=== PATIENT | female | born 2000 | race Caucasian/White ===

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

== ENCOUNTER → 2020-11-03 14:00 | Outpatient (BNVA) | payer BC, MEDICAID, SELFPAY | PROVIDERS: Family Provider Family Medicine; PCP Family Medicine; Visit Provider Obstetrics & Gynecology | DX: Z30.017 Encounter for initial prescription of implantable subdermal contraceptive (principal) | CPT/HCPCS: 81025 ==

== ENCOUNTER 2021-08-02 17:06 | Emergency (ER) | payer OTHER, SELFPAY ==
[2021-08-02 17:46] VITALS: BP 134/81; PULSE 99; RESP 14; TEMP 36.7; O2SAT 99
[2021-08-02 20:03] VITALS: BP 126/76; PULSE 84; RESP 14; O2SAT 99
--- NOTE | 2021-08-02 20:03 | XRR_ITS ---
PROCEDURE INFORMATION: Exam: XR Abdomen Exam date and time: 08/02/2021 8:11 PM Age: 21 years old Clinical indication: Abdominal pain; Generalized; Additional info: Episodic abdominal pain TECHNIQUE: Imaging protocol: XR of the abdomen. Views: Frontal supine view of the abdomen. 1 View. COMPARISON: No relevant prior studies available. FINDINGS: Gastrointestinal tract: Moderate amount of stool throughout the colon. No dilated loops of bowel identified. No evidence of free air. Bones/joints: Unremarkable. XR/XR KUB [id number] IMPRESSION: No acute findings.
--- NOTE | 2021-08-02 20:04 | ED_ITS ---
HPI - Abdominal Pain General: Chief Complaint: Abdominal Pain Stated Complaint: sharp abdominal pain when eating Time Seen by Provider: 08/02/21 19:52 History of Present Illness: Patient is a 21-year-old female comes to the ED with episodic abdominal pain. Symptoms have been going on now for several weeks. Today the abdominal pain was more intense than in previous episodes. She says the abdominal pain is episodic and comes usually once a day and lasts for anywhere from 15 to 30 minutes after she eats. She describes a sharp cramping pain throughout her abdomen. Here in the ED she is not having any abdominal pain. She says the episode of abdominal pain she had earlier has completely resolved and she feels normal. She endorses daily bowel movements. Denies any fever, chills, nausea/vomiting, dysuria, hematuria, diarrhea or constipation. Associated Symptoms: Reports GI cramping; Denies chills, constipation, diarrhea, dysuria, fever(s), hematochezia, hematuria, nausea and vomiting Related Data: Date of Last Menstrual Period: 08/02/21 Review of Systems Const: Denies: fever(s), chills or fatigue Eyes: Denies: change in vision or eye discomfort ENMT: Denies: throat pain, odynophagia, nasal discharge or nasal congestion Card: Denies: chest pain, palpitations, edema, swelling of feet/ankles, dyspnea on exertion or orthopnea Resp: Denies: dyspnea, productive cough or non-productive cough GI: Reports: abdominal pain and GI cramping; Denies: nausea, vomiting, diarrhea, constipation or hematochezia : Denies: flank pain, dysuria or hematuria Musc: Denies: neck pain, back pain or extremity swelling Skin/Breast: Denies: rash or new lesions Neuro: Denies: headache(s), numbness in extremities or weakness in extremities PFSH ED PFSH: Surgical History No pertinent past surgical history Family History Grandmother Stroke Maternal Denies family history of Diabetes CAD (coronary artery disease) Clotting disorder Hyperlipidemia Chronic kidney disease (CKD) Bleeding disorder Cancer Hypertension Female Reproductive History: Date of last menstrual period: 08/02/21 Physical Exam Const: COMMON NORMALS: no acute distress, patient oriented x3, healthy appearing and alert GENERAL APPEARANCE: cooperative and comfortable HENMT: COMMON NORMALS: normocephalic HEAD & SCALP: normocephalic MOUTH: Normal oral and palatal mucosa present THROAT: posterior oropharynx normal and uvula midline Eye: COMMON NORMALS: Equal, round and reactive pupils present and conjunctivae normal CONJUNCTIVA: Yes conjunctivae normal PUPIL: Yes Equal, round and reactive pupils present Neck/C-Spine: COMMON NORMALS: supple GENERAL: Yes normal visual inspection Resp: COMMON NORMALS: normal respiratory effort, No retractions, No use of accessory muscles and clear to auscultation bilaterally AUSCULTATION: clear to auscultation bilaterally Cardio: COMMON NORMALS: regular rate, regular rhythm, S1 normal heart sound present, S2 normal heart sound present, No gallops present (Cardio), No clicks present (Cardio), No murmurs present (Cardio) and Peripheral pulses 2+ throughout RATE: regular rate RHYTHM: regular rhythm HEART SOUNDS: S1 normal heart sound present and S2 normal heart sound present PERIPHERAL PULSES: Peripheral pulses 2+ throughout GI: COMMON NORMALS: Normal to inspection, nondistended, normoactive bowel sounds present, Soft to palpation, non-tender and no masses PALPATION: Yes Soft to palpation OTHER: Patient has no abdominal tenderness to palpation throughout all 4 quadrants. : COMMON NORMALS: Yes no CVA tenderness BLADDER/KIDNEY EXAM: Yes no CVA tenderness Back/Pelvis: COMMON NORMALS: no CVA tenderness Extremity: COMMON NORMALS: normal to inspection Neuro: COMMON NORMALS: patient oriented x3 SENSORIUM/ORIENTATION: Yes alert GAIT: Yes Normal gait present Skin: GENERAL SKIN EXAM: dry skin Course Vital Signs: Vital signs: Vital Signs Temperature 98.0 F 08/02/21 17:46 Pulse Rate 84 08/02/21 21:11 Respiratory Rate 16 08/02/21 21:11 Blood Pressure 116/75 08/02/21 21:11 Pulse Oximetry 98 08/02/21 21:11 MDM - Abdominal Pain Medical Decision Making Patient is a 21-year-old female comes to the ED with episodes of abdominal pain. She describes them as sharp cramping pain she has been having these for several weeks now. Episodes usually start after she eats and they last anywhere from 15 to 30 minutes. In the ED she has no current abdominal pain and states she feels normal. Denies any other symptoms such as fever, nausea/vomiting or diarrhea or constipation. Vitals are stable. Exam is benign patient has no abdominal tenderness. Labs are overall unremarkable. KUB showed a moderate amount of stool in the colon but no other acute findings. Given patient's clinical presentation normal labs and KUB findings she likely is having abdominal pain due to constipation. Patient was stable for discharge home I told her to follow-up with her PCP in the next week for reevaluation. She was sent home with a prescription for MiraLAX. Return ED precautions given. Patient understood and agreed with plan. Lab Data I reviewed the patient's lab results. : 08/02/21 19:43 08/02/21 19:43 Labs/Radiology: Radiology Impressions KUB X-Ray 08/02/21 20:03 IMPRESSION: No acute findings. Laboratory Results WBC 8.1 10^3/uL (4.0-10.0) 08/02/21 19:43 RBC 5.10 10^6/uL (4.1-5.3) 08/02/21 19:43 Hgb 14.2 g/dL (11.5-15.3) 08/02/21 19:43 Hct 43.0 % (37.0-47.0) 08/02/21 19:43 MCV 84.3 fl (81-99) 08/02/21 19:43 MCH 27.8 pg (28.0-34.0) L 08/02/21 19:43 MCHC 33.0 g/dL (30.0-36.0) 08/02/21 19:43 RDW 11.8 % (12.1-15.1) L 08/02/21 19:43 Plt Count 366 10^3/cmm (130-400) 08/02/21 19:43 MPV 9.3 fL (7.4-10.4) 08/02/21 19:43 Neut % (Auto) 60.9 % 08/02/21 19:43 Lymph % (Auto) 31.2 % 08/02/21 19:43 [place] % (Auto) 6.6 % 08/02/21 19:43 Eos % (Auto) 0.7 % 08/02/21 19:43 Baso % (Auto) 0.4 % 08/02/21 19:43 Neut # (Auto) 4.92 10^3/uL (1.8-7.7) 08/02/21 19:43 Lymph # (Auto) 2.5 10^3/uL (0.8-4.8) 08/02/21 19:43 [place] # (Auto) 0.5 10^3/uL (0.2-0.9) 08/02/21 19:43 Eos # (Auto) 0.1 10^3/uL (0.0-0.8) 08/02/21 19:43 Baso # (Auto) 0.0 10^3/uL (0.0-0.1) 08/02/21 19:43 Nucleated RBC % (auto) 0 % 08/02/21 19:43 Nucleated RBCs # 0.0 /100WBC 08/02/21 19:43 Sodium 138 mmol/L (136-145) 08/02/21 19:43 Potassium 3.8 mmol/L (3.5-5.1) 08/02/21 19:43 Chloride 102 mmol/L (98-107) 08/02/21 19:43 Carbon Dioxide 23 mmol/L (22-29) 08/02/21 19:43 Anion Gap 16.8 (5-19) 08/02/21 19:43 BUN 9 mg/dL (6-20) 08/02/21 19:43 Creatinine 0.6 mg/dL (0.5-0.9) 08/02/21 19:43 GFR Calculation 126.2 mL/min (90-130) 08/02/21 19:43 Glucose 84 mg/dL (65-115) 08/02/21 19:43 Calculated Osmolality 284 mOsm/kg (285-295) L 08/02/21 19:43 Calcium 9.9 mg/dL (8.5-10.5) 08/02/21 19:43 Total Bilirubin 0.3 mg/dL (0.15-1.2) 08/02/21 19:43 AST 19 U/L (0-32) 08/02/21 19:43 ALT 18 U/L (0-33) 08/02/21 19:43 Alkaline Phosphatase 78 IU/L (35-105) 08/02/21 19:43 Total Protein 7.5 g/dL (6.6-8.7) 08/02/21 19:43 Albumin 4.6 g/dL (3.5-5.2) 08/02/21 19:43 Globulin 2.9 g/dL (1.3-4.6) 08/02/21 19:43 Lipase 45 U/L (13-60) 08/02/21 19:43 HCG, Qual Negative (Negative) 08/02/21 19:52 Urine Color Yellow (Yellow) 08/02/21 19:52 Urine Appearance Clear (CLEAR) 08/02/21 19:52 Urine pH 8 (5-7) H 08/02/21 19:52 Ur Specific Roland 1.010 (1.005-1.030) 08/02/21 19:52 Urine Protein Neg (Negative) 08/02/21 19:52 Urine Glucose (UA) Norm (Normal) 08/02/21 19:52 Urine Ketones Negative (Negative) 08/02/21 19:52 Urine Blood 3+ (Negative) H 08/02/21 19:52 Urine Nitrate Negative (Negative) 08/02/21 19:52 Urine Bilirubin Neg (Negative) 08/02/21 19:52 Prot Sulfosalicylic Acd Negative (Negative) 08/02/21 19:52 Urine Urobilinogen Norm mg/dL (Negative) 08/02/21 19:52 Ur Leukocyte Esterase Negative (Negative) 08/02/21 19:52 Urine RBC 15-25 /hpf (0-2) H 08/02/21 19:52 Urine WBC 0-4 /hpf (0-5) H 08/02/21 19:52 Ur Squamous Epith Cells 10-15 /hpf (0-5) H 08/02/21 19:52 Amorphous Sediment Not Reportable 08/02/21 19:52 Urine Bacteria 1+ /hpf (NONE) H 08/02/21 19:52 Urine Mucus Trace /hpf 08/02/21 19:52 Discharge Plan Discharge Patient Disposition: Home Clinical Impression: Constipation Qualifiers: Constipation type: slow transit constipation Qualified Code(s): K59.01 - Slow transit constipation Condition: Stable Prescriptions: New Miralax 17 gram/dose powder 17 g PO DAILY PRN (Reason: constipation) Qty: 238 0RF No Action ibuprofen 200 mg capsule 200 mg PO Q6H [id number] Discharge Orders: Discharge ED (Routine); Ordered 08/02/21 Ordered By: Jonn Ojeda Referrals: Perla Rivera, DO [Primary Care Provider] - Discharge Diet: Regular Discharge Activity: Resume usual activity Patient Instructions: Constipation (DC), High Fiber Diet (ED) Activity Restrictions/Additional Instructions: Follow-up with medical provider as directed in the next 5 to 7 days for reevaluation. Take MiraLAX daily for the next 3 to 4 days to help with bowel movements. Then after that you can take as needed for any constipation. Make sure to drink plenty of fluids and stay hydrated. Return to the ER or your med [facility] provider if condition worsens. Please read and understand discharge instructions. Thank you for choosing [facility] for your healthcare needs today. Please realize this is an emergency room and that we are providing you with a medical screening exam and this may not be complete and all inclusive of all the testing and or work up that you may need to determine your ailment or severity of your illness. It is very important that you follow up as instructed or that you return to the Emergency Department should you have concerns or if your condition changes or worsens in any way. Coding Level of Care Code ED [facility] for [facility] Fwd Exam Comprehensive
[2021-08-02 20:08] LABS: Alanine Aminotransferase 18 U/L (0-33); Albumin Level 4.6 g/dL (3.5-5.2); Alkaline Phosphatase 78 IU/L (35-105); Anion Gap 16.8 (5-19); Aspartate Amino Transferase 19 U/L (0-32); Basophils % 0.4 %; Blood Urea Nitrogen 9 mg/dL (6-20); Calcium 9.9 mg/dL (8.5-10.5); Carbon Dioxide 23 mmol/L (22-29); Chloride 102 mmol/L (98-107); Eosinophils # 0.1 10^3/uL (0.0-0.8); Eosinophils % 0.7 %; Globulin 2.9 g/dL (1.3-4.6); Glomerular Filtration Rate 126.2 mL/min (90-130); Glucose 84 mg/dL (65-115); Hemoglobin 14.2 g/dL (11.5-15.3); Lipase 45 U/L (13-60); Lymphocytes # 2.5 10^3/uL (0.8-4.8); Lymphocytes % 31.2 %; Mean Corpuscular Hemoglobin 27.8 pg (28.0-34.0); Mean Corpuscular Volume 84.3 fl (81-99); Mean Platelet Volume 9.3 fL (7.4-10.4); Monocytes # 0.5 10^3/uL (0.2-0.9); Monocytes % 6.6 %; Neutrophils # 4.92 10^3/uL (1.8-7.7); Neutrophils % 60.9 %; Nucleated Red Blood Cells % 0 %; Osmolality Calculated 284 mOsm/kg (285-295); Platelet Count 366 10^3/cmm (130-400); Potassium 3.8 mmol/L (3.5-5.1); Red Cell Distribution Width 11.8 % (12.1-15.1); Sodium 138 mmol/L (136-145); Total Bilirubin 0.3 mg/dL (0.15-1.2); Total Protein 7.5 g/dL (6.6-8.7); White Blood Count 8.1 10^3/uL (4.0-10.0)
[2021-08-02 20:58] LABS: HCG Qualitative Urine. Negative (Negative)
[2021-08-02 21:04] VITALS: BP 122/74; PULSE 88; RESP 16; O2SAT 97
[2021-08-02 21:09] LABS: Add Urine Microscopic? YES; Bilirubin Urine Neg (Negative); Blood Urine 3+ (Negative); Glucose Urine UA Norm (Normal); Ketones Urine Negative (Negative); Leukocyte Esterase Urine Negative (Negative); Nitrate Urine Negative (Negative); Protein Urine Neg (Negative); Sulfosalicylic Acid Urine Negative (Negative); Urine Appearance Clear (CLEAR); Urine Color Yellow (Yellow); Urobilinogen Urine Norm (Negative); pH Urine 8 (5-7)
[2021-08-02 21:11] VITALS: BP 116/75; PULSE 84; RESP 16; O2SAT 98
[2021-08-02 21:13] LABS: Add Urine Culture? No; Bacteria Urine 1+ /hpf; Mucus Urine TRACE /hpf; RBC Urine 15-25 /hpf (0-2); WBC Urine 0-4 /hpf (0-5)
== END 2021-08-02 21:12 | disposition home or self-care (01) ==
PROVIDERS: Emergency Medicine; Emergency Provider Physician Assistant; PCP Family Medicine
DX: K59.01 Slow transit constipation (principal)
CPT/HCPCS: 74018; 80053; 81001; 81025; 83690; 85025; 99283

== ENCOUNTER 2022-04-27 14:17 | Outpatient (CLI) | payer OTHER, SELFPAY ==
--- NOTE | 2022-04-27 14:42 | XR_ITS ---
WS: [id number] Exam: XR lumbar spine 2-3V* [id number] Date/Time of Exam: 04/27/2022 2:46 PM Reason For Exam: back pain No fracture or dislocation. Disc spaces are preserved. Posterior elements are intact. Slight levoscol iosis. Unremarkable paraspinal soft tissues. XR/XR lumbar spine 2-3V* [id number] IMPRESSION: 1. Slight levoscoliosis otherwise normal lumbar spine study.
--- NOTE | 2022-04-27 14:42 | XR_ITS ---
WS: [id number] Exam: XR cervical spine 3V* [id number] Date/Time of Exam: 04/27/2022 2:46 PM Reason For Exam: neck pain Comparison 09/28/2019. No fracture or dislocation. Disc spaces are preserved. Normal-appearing posterior elements. Paraspina l soft tissues are unremarkable. The odontoid is intact. There is straightening. XR/XR cervical spine 3V* [id number] IMPRESSION: 1. Straightening of the cervical spine otherwise unremarkable exam.
== END 2022-04-27 14:18 | disposition home or self-care (01) ==
PROVIDERS: PCP Family Medicine; Visit Provider Family Medicine
DX: G43.909 Migraine, unspecified, not intractable, without status migrainosus (principal); M54.2 Cervicalgia; M54.50 Low back pain, unspecified
CPT/HCPCS: 72040; 72100

== ENCOUNTER 2022-12-24 15:30 | Outpatient (CLI) | payer OTHER, BC, MEDICAID, SELFPAY | END 2022-12-24 15:31 | disposition home or self-care (01) | LOC: SLEEP 12-25 10:24 | PROVIDERS: PCP Family Medicine; Visit Provider Family Medicine | DX: G47.00 Insomnia, unspecified (principal); G47.33 Obstructive sleep apnea (adult) (pediatric); F41.9 Anxiety disorder, unspecified; G43.909 Migraine, unspecified, not intractable, without status migrainosus | CPT/HCPCS: G0399 ==